=== PATIENT | female | born 1960 | race African-American/Black ===

== ENCOUNTER 2020-04-11 06:04 | Emergency (ER) | payer OTHER ==
[~2020-04-11] VITALS: Ht 152.4 cm; Wt 90.0 kg
[2020-04-11] MEDS ORDERED: KETOROLAC 60MG/2ML VIAL IM ONE (06:45)
[2020-04-11 08:54] VITALS: BP 180/101
== END 2020-04-11 08:55 | disposition home or self-care (01) ==
LOC: ER 06:04
DX: T14.8XXA Other injury of unspecified body region, initial encounter (principal); R07.89 Other chest pain; V49.59XA Passenger injured in collision with other motor vehicles in traffic accident, initial encounter; Y93.89 Activity, other specified; Y92.89 Other specified places as the place of occurrence of the external cause; Y99.8 Other external cause status
CPT/HCPCS: 71045; 72170; 96372; 99284; J1885